=== PATIENT | female | born 1980 | race Caucasian/White ===

== ENCOUNTER 2024-10-27 09:25 | Emergency (ER) | payer BC, SELFPAY ==
[2024-10-27 09:32] VITALS: BP 126/87
[2024-10-27 10:35] VITALS: BP 137/78; BMI 29.9
[2024-10-27 11:00] VITALS: BP 137/72
--- NOTE | 2024-10-27 11:35 | EDRN ---
Dr. Estrada in room w/pt at this time.
[2024-10-27 12:00] VITALS: BP 111/65
[2024-10-27] MEDS: NSS 1000 IV (12:05)
--- NOTE | 2024-10-27 12:22 | ED.GENMED ---
History of Present Illness
General
Chief Complaint: Dizziness
Time Seen by Provider: 10/27/24 11:15
History of Present Illness
History of Present Illness:
43-year-old female with history of CVA (no deficits) presenting to the emergency department for concern of syncopal episode.� Patient reports she was in the car with her son and had a brief episode where she blacked out.� Does note that it was
preceded with dizziness and lightheadedness.� Reports that she has had something similar in the past.� She reports she does feel dehydrated, however has been drinking fluids appropriately.� Denies associated chest pain.� Does note for the past 2
months has had cough and congestion.� Does note some mild dyspnea.� Denies associated fever.� Reports prior history of PE, however was provoked by COVID.� She is not on any anticoagulation.� Denies chest pain. �Denies abdominal pain.� Denies focal
weakness or sensory deficits to extremities.
Phy Exam
Physical Exam
Physical Exam:
General: Well-appearing, no clinical signs of dehydration, nontoxic and in no acute distress
HEENT: protecting airway
Neck: appears supple
CV: Tachycardic, regular rhythm, no evidence of cyanosis
Resp: No accessory muscle use, no increased work of breathing, lungs clear to auscultation bilaterally
Abd: Soft and non-distended, no tenderness to palpation
Extremities: No deformities, no swelling
Neuro: alert, no focal neurologic deficit
: deferred
Rectal: deferred
Psych: Normal affect
Skin: Intact
Course
Orders/Labs/Results
Orders:
Orders
10/27/24 09:35
Electrocardiogram (*1) Urgent
Reason for Study: Vertigo / Dizzy
EKG- Treatment ONCE
10/27/24 11:44
0.9% Sodium Chloride 1000 ml [Nss] 1,000 ml IV BOLUS
10/27/24 11:45
CR Chest - 2 Views Urgent
Comment:
Reason For Exam: cough SOB
10/27/24 11:58
COVID-19 Antigen Urgent
Source: Nasal Swab
Complete Blood Count/With Diff Urgent
Comprehensive Metabolic Panel Urgent
D-Dimer Urgent
Troponin I Urgent
Influenza A+B Rapid Molecular Urgent
[facility]UNIEL Source: Nasal Swab
Specimen Description:
Abnormal Lab Results
10/27/24
11:58
RBC 3.71 L 10^6/uL
(4.20-5.40)
Hgb 11.8 L g/dL
(12.0-16.0)
Hct 35.2 L %
(37.0-47.0)
MCH 31.8 H pg
(27.0-31.0)
MPV 12.6 H fL
(7.4-10.4)
Absolute Neuts (auto) 8.0 H 10^3/uL
(1.4-6.5)
Neutrophils % 82.9 H %
(42.2-75.2)
Lymphocytes % 12.1 L %
(20.5-51.1)
BUN 20 H mg/dl
(7-17)
Glucose 60 L mg/dl
(70-99)
AST 12 L U/L
(14-36)
10/27/24 11:58
10/27/24 11:58
Vital Signs
Initial and Last Documented VS:
Initial Vital Signs
Temp Pulse Resp BP Pulse Ox
97.9 F 98 16 126/87 100
10/27/24 09:32 10/27/24 09:32 10/27/24 09:32 10/27/24 09:32 10/27/24 09:32
Last Documented Vital Signs
Temp Pulse Resp BP Pulse Ox
97.9 F 96 19 111/65 99
10/27/24 09:32 10/27/24 12:45 10/27/24 12:45 10/27/24 12:00 10/27/24 12:45
MDM/Problems Addressed
MDM/Problems Addressed:
43-year-old female presenting to the emergency department after a syncopal episode.� Vital signs on arrival are normal
On exam patient resting comfortably, no acute distress.� Regarding syncopal episode, no focal neurologic deficits, without present concern for central neurologic process.� Was preceded by lightheadedness and dizziness, reports feeling dehydrated,
possible vasovagal component.� EKG obtained, no arrhythmia.� Patient however is slightly tachycardic, prior history of PE.� Although provoked, cannot satisfy PERC rule.� Will send dimer.� Patient also reports URI symptoms for the past 2 months.�
Possible infectious component.� Will obtain chest x-ray imaging and send viral swabs.� Will start patient on IV fluids and continue to monitor.
13:30 -patient's labs are unremarkable.� Normal troponin and D-dimer.� Of note, labs do show mild hypoglycemia.� Patient is awake, alert, talking.� She did not have anything to eat or drink today, did have IV fluids.� No history of diabetes.� Sugar
containing beverage provided.�Chest x-ray without acute cardiopulmonary disease.��Patient otherwise remains stable.��Stable for discharge.��Return precautions discussed and patient verbalized understanding.
*Critical Care Note
Total Time (30-74mins, 75-104mins- exclusive of procedures): Not Applicable
ED Attending Note
-
Portions of this chart may have been created with voice recognition software.� Occasional wrong word or��sound alike� substitutions may have occurred due to the inherent limitations of voice recognition software.
Discharge Plan
Departure
Patient Disposition: Home (Routine Discharge)
Patient with high blood pressure during this ER visit?: No
Condition: Good
Discharge Problem:
Syncope
Instructions: Syncope (fainting)
Prescriptions:
No Action
.[place] M
200 mg PO DAILY
lamotrigine 150 mg Tablet
150 mg PO DAILY
Zepbound 2.5 mg/0.5 mL Pen Injector
2.5 mg SC QWEEK
Rx Instructions:
for 4 weeks
Referrals:
Lee Reeves PA [Family Provider, Family Practice]
Activity Restrictions/Additional Instructions:
You were seen in the emergency department for an episode of passing out
You were found to have reassuring laboratory analysis, chest x-ray, EKG
Please follow-up closely with your primary care physician.
Return to the emergency department for any worsening of your symptoms, or any development of chest pain, difficulty breathing, abdominal pain with persistent vomiting and inability to tolerate food or liquid by mouth (concern for dehydration),
weakness, headache or confusion, fever greater than 100.4, or any additional symptoms that are concerning to you.
Thank you for choosing [facility].
Interventions
Interventions:
*Risk Screen - Suicide Last Done: 10/27/24 09:35
*General Assessment Last Done: 10/27/24 10:38
*Neglect/Abuse Screening Last Done: 10/27/24 09:35
*ED- Fall Risk Assessment Last Done: 10/27/24 10:38
*ED COVID-19 Vaccine History Last Done: 10/27/24 10:38
*Nursing Disposition Last Done: 10/27/24 14:30
ED- Neurological Assessment Last Done: 10/27/24 12:08
ED- Cardiac Assessment Last Done: 10/27/24 12:08
ED Swallowing Screen Last Done: 10/27/24 12:10
Discharge Date and Time
Discharge Date/Time: 10/27/24 14:30
Print Language: PANAMANIAN
[2024-10-27 12:37] LABS: % Basophils 0.5 % (0-2); % Eosinophils 0.2 % (0-6); % Immature Granulocytes 0.3 % (0-0.5); % Lymphocytes 12.1 % (20.5-51.1); % Neutrophils 82.9 % (42.2-75.2); Absolute Basophils 0.1 10^3/uL (0-0.2); Absolute Lymphocytes 1.2 10^3/uL (1.2-3.4); Absolute Monocytes 0.4 10^3/uL (0.1-0.6); Hematocrit 35.2 % (37.0-47.0); Hemoglobin 11.8 g/dL (12.0-16.0); Mean Corp Hgb Conc. 33.5 g/dL (33.0-37.0); Mean Corpuscular Hgb 31.8 pg (27.0-31.0); Mean Corpuscular Volume 94.9 fL (81.0-99.0); Mean Platelet Volume 12.6 fL (7.4-10.4); Nucleated Red Blood Cells % 0 %; Platelet Count 220 10^3/uL (130-400); Red Blood Cell Count 3.71 10^6/uL (4.20-5.40); Red Cell Dist. Width 11.8 % (11.5-14.5); White Blood Cell Count 9.7 10^3/uL (4.8-10.8)
[2024-10-27 12:40] LABS: ALT (SGPT) 13 U/L (0-35); AST (SGOT) 12 U/L (14-36); Albumin 4.5 g/dl (3.5-5.0); Alkaline Phosphatase 50 U/L (38-126); Blood Urea Nitrogen 20 mg/dl (7-17); Calcium 9.4 mg/dl (8.4-10.2); Carbon Dioxide 24 mmol/L (22-30); Chloride 106 mmol/L (98-107); Estimated Creatinine Clearance 95 ml/min; Glucose 60 mg/dl (70-99); Potassium 4.7 mmol/L (3.5-5.1); Sodium 138 mmol/L (135-145); Total Bilirubin 0.7 mg/dl (0.2-1.3); Total Protein 7.3 g/dl (6.3-8.2); eGFR > 60.00
[2024-10-27 12:41] LABS: D-Dimer < 0.27 ug/mlFEU (0.00-0.50)
[2024-10-27 12:51] LABS: Troponin I < 0.012 ng/ml
[2024-10-27 12:54] LABS: COVID-19 Antigen Negative (Negative)
[2024-10-27 15:36] LABS: Glucose - Point of Care 73 mg/dl (70-99)
--- NOTE | 2024-10-27 17:14 | DOWNTIME ---
There was a [employer] Relations Downtime on 10/27/2024 from 1230 to 10/27/2024 at 1550. Downtime documentation of patient's care, including medication administrations, has been reconciled in the electronic record per guidelines. Refer to the
patient's paper chart under the miscellaneous tab to see printed paper medication records and downtime forms.
== END 2024-10-27 14:30 | disposition home or self-care (01) ==
LOC: EMR 09:25
PROVIDERS: EMERGENCY PHYSICIAN Student in an Organized Health Care Education/Training Program; FAMILY PHYSICIAN Physician Assistant Medical
DX: R55 Syncope and collapse (principal); Z86.73 Personal history of transient ischemic attack (TIA), and cerebral infarction without residual deficits; Z11.52 Encounter for screening for COVID-19; Z86.711 Personal history of pulmonary embolism
CPT/HCPCS: 99285; 96360; 71046; 80053; 82962; 84484; 85025; 85379; 87502; 87811; 93005